=== PATIENT | male | born 1995 | race African-American/Black ===

== ENCOUNTER 2023-04-08 13:08 | Emergency (ER) | payer MEDICAID ==
[~2023-04-08] VITALS: Ht 180.3 cm; Wt 91.0 kg
[2023-04-08 13:30] VITALS: BP 113/67; PULSE 80; RESP 16; TEMP 98.7; O2SAT 99
[2023-04-08 15:18] LABS: ALANINE AMINOTRANSFERASE 33 IU/L (10-49); ALBUMIN 4.2 g/dL (3.2-4.8); ASPARTATE AMINOTRANSFERASE 31 IU/L (<34); BILIRUBIN TOTAL 0.9 mg/dL (0.1-1.0); CALCIUM 9.2 mg/dL (8.7-10.4); CARBON DIOXIDE 25 mEq/L (21-32); CHLORIDE 105 mEq/L (98-107); CREATININE 1.1 mg/dL (0.6-1.3); GLUCOSE 85 mg/dL (70-105); POTASSIUM 3.7 mEq/L (3.5-5.1); PROTEIN TOTAL 7.1 g/dL (6.0-8.3); SODIUM 137 mEq/L (136-145); UREA NITROGEN BLOOD 11 mg/dL (9-23)
== END 2023-04-08 17:31 | disposition home or self-care (01) ==
LOC: ER 13:08
DX: F41.9 Anxiety disorder, unspecified (principal)
CPT/HCPCS: 36415; 80053; 99283; 99291